=== PATIENT | male | born 2000 | race Asian ===

== ENCOUNTER 2024-11-28 12:30 | Emergency (ER) | payer OTHER ==
[2024-11-28 12:52] VITALS: BP 115/91; PULSE 100; RESP 16; TEMP 98.7; BMI 25.0
[2024-11-28] MEDS ORDERED: POLYETHYLENE GLYCOL (HEALTHYLAX) 3350 17 GM PACKET ONE (13:57)
[2024-11-28] MEDS: POLYETHYLENE GLYCOL (HEALTHYLAX) 3350 17 GM PACKET PO ONE (14:00)
[2024-11-28 14:45] LABS: URINE APPEARANCE BLOODY; URINE COLOR RED
[2024-11-28 14:46] LABS: URINE GLUCOSE (UA) TRACE (NEGATIVE)
[2024-11-28 14:47] LABS: URINE BILIRUBIN 1+ (NEGATIVE); URINE PROTEIN 4+ (NEGATIVE)
== END 2024-11-28 15:23 | disposition home or self-care (01) ==
LOC: JER 12:30
DX: K59.00 Constipation, unspecified (principal); R31.9 Hematuria, unspecified
CPT/HCPCS: 74018-TC-FY; 81003; 87086; 87186; 99285-25